=== PATIENT | female | born 1980 | race Caucasian/White ===

== ENCOUNTER 2016-12-24 05:41 | Inpatient (IN) | payer OTHER ==
[~2016-12-24] VITALS: Ht 157.5 cm; Wt 79.3 kg
[2016-12-24] VITALS (7 sets, daily range): BP systolic 98–122; BP diastolic 54–71
[~2016-12-24 05:41] MED LIST: BENADRYL25 MG PO; CEPHALEXIN500 MG PO; ENDOCET 5-3251 EACH PO; FERROUS FUMARAT63 MG PO; IBUPROFEN800 MG PO; MUCINEX1200 MG PO; MYLICON,MYLANTA80 MG PO; PRENATAL TABLE1 EAC3 PO; TYLENOL EXTRA500 MG PO
[2016-12-24 06:15] LABS: EOSINOPHIL (%) 1.4 % (0-5); EOSINOPHIL COUNT 0.1 K/uL (0-0.3); HEMATOCRIT 32.8 % (36.0-46.0); IMMATURE GRANULOCYTE (%) 1.6 % (0.0-0.7); IMMATURE GRANULOCYTE COUNT 0.2 K/uL; INSTRUMENT ABS NEUTROPHIL CT 7.5 K/uL; LYMPHOCYTE COUNT 1.8 K/uL (1.0-2.8); MCH 33.5 PG (29.0-34.0); MCHC 34.5 G/DL (30.0-36.0); MCV 97.3 FL (83-99); MEAN PLAT.VOLUME 9.2 uM^3 (9.5-12.4); MONOCYTE COUNT 0.7 K/uL (0-0.8); NEUTROPHIL (%) 72.2 % (45-76); NEUTROPHIL COUNT 7.5 K/uL (1.8-6.4); PLATELET COUNT 348 K/uL (156-360); RBC DIS.WIDTH-CV 15.5 % (11.8-14.6); RED BLOOD COUNT 3.37 M/uL (3.80-5.20); WHITE BLOOD COUNT 10.3 K/uL (4.1-10.2)
[2016-12-24] MEDS ORDERED: IBUPROFEN800 MG PO (08:45)
[2016-12-24] MEDS ORDERED: HYDROMORPHONE HC2 MG PO (08:45)
[2016-12-25 07:22] VITALS: BP 103/57
[2016-12-25 07:42] LABS: HEMATOCRIT 26.5 % (36.0-46.0); MCH 32.6 PG (29.0-34.0); MCHC 32.8 G/DL (30.0-36.0); MCV 99.3 FL (83-99); RBC DIS.WIDTH-CV 15.9 % (11.8-14.6); RBC DIS.WIDTH-SD 56.1 % (39-53)
[2016-12-25 07:43] LABS: EOSINOPHIL (%) 0.7 % (0-5); EOSINOPHIL COUNT 0.1 K/uL (0-0.3); IMMATURE GRANULOCYTE (%) 0.8 % (0.0-0.7); IMMATURE GRANULOCYTE COUNT 0.1 K/uL; INSTRUMENT ABS NEUTROPHIL CT 9.3 K/uL; LYMPHOCYTE COUNT 1.7 K/uL (1.0-2.8); MONOCYTE (%) 6.7 % (3-12); MONOCYTE COUNT 0.8 K/uL (0-0.8); NEUTROPHIL (%) 77.2 % (45-76); NEUTROPHIL COUNT 9.3 K/uL (1.8-6.4); RED BLOOD COUNT 2.67 M/uL (3.80-5.20)
[2016-12-25 08:01] LABS: HEMATOLOGY COMMENT 1 SMEAR COMPATIBLE; MEAN PLAT.VOLUME 9.2 uM^3 (9.5-12.4); PLAT.SUFFICIENCY ADEQUATE
[2016-12-25 08:28] LABS: PLATELET COUNT 241 K/uL (156-360)
[2016-12-25 10:40] VITALS: BP 112/68
[2016-12-25 15:46] VITALS: BP 114/62
[2016-12-25 19:50] VITALS: BP 127/74
[2016-12-25 22:31] VITALS: BP 111/62
[2016-12-26 02:54] VITALS: BP 111/63
[2016-12-26 07:38] VITALS: BP 110/63
[2016-12-26 11:22] VITALS: BP 113/65
[2016-12-27 07:14] VITALS: BP 98/57
[2016-12-27 14:10] VITALS: BP 117/69
[2016-12-28 07:39] VITALS: BP 113/70
[2016-12-28] MEDS ORDERED: PERCOCET 5/31 TABLET PO (11:00)
== END 2016-12-28 12:30 | disposition home or self-care (01) | DRG 765 ==
LOC: 2WEST 05:41 → 2SOUTH 08:59 → 2WEST 12-28 12:30
PROVIDERS: Obstetrics & Gynecology
PROC: 10D00Z1 Extraction of Products of Conception, Low, Open Approach (ICD-10-PCS; principal; 2016-12-24)
DX: O34.211 Maternal care for low transverse scar from previous cesarean delivery (principal); O99.62 Diseases of the digestive system complicating childbirth; Z37.0 Single live birth; K66.0 Peritoneal adhesions (postprocedural) (postinfection); K21.9 Gastro-esophageal reflux disease without esophagitis; Z3A.39 39 weeks gestation of pregnancy; O69.81X1 Labor and delivery complicated by cord around neck, without compression, fetus 1; O36.63X0 Maternal care for excessive fetal growth, third trimester, not applicable or unspecified; O09.513 Supervision of elderly primigravida, third trimester; L40.9 Psoriasis, unspecified; O99.713 Diseases of the skin and subcutaneous tissue complicating pregnancy, third trimester; O12.04 Gestational edema, complicating childbirth; O99.02 Anemia complicating childbirth; D62 Acute posthemorrhagic anemia
CPT/HCPCS: 85025; 86900; 86901; J0690; J1100; J2274; J2405; J3010; J7120